=== PATIENT | male | born 1970 | race Caucasian/White ===

== ENCOUNTER → 2018-08-22 | Outpatient (CLI) | payer OTHER ==
[~2018-08-22] MED LIST: ANUSOL-HC25 MG RECTAL; COLACE100 MG PO; PRINIVIL5 MG PO
== END ==
LOC: CAT 09:11
DX: Z13.6 Encounter for screening for cardiovascular disorders (principal); E78.00 Pure hypercholesterolemia, unspecified

== ENCOUNTER → 2019-07-25 | Outpatient (CLI) | payer BC, OTHER ==
--- NOTE | 2019-07-25 13:51 | 2DMMODE ---
[facility] [place] [address] 2 D/M-MODE ECHOCARDIOGRAM Name: HUMAIRA IZAGUIRRE Room #: REG [facility]#: [id number] Admission: 07/25/19 Attend Phys: Oni Daugherty MD Discharge: Date of : 70 Report #: [id number] THIS REPORT FOR: //name// APPROVED REPORT Study performed: 07/25/2019 12:40:02 EXAM: Comprehensive 2D, Doppler, and color-flow Echocardiogram Patient Location: Out-Patient Status: routine BSA: 2.39 HR: 74 bpm BP: 122/70 mmHg Rhythm: NSR Other Information Study Quality: Good Indications Chest Pain 2D Dimensions RVDd: 29.96 mm IVSd: 11.34 (7-11mm) LVOT Diam: 25.17 (18-24mm) LVDd: 48.59 mm PWd: 11.70 (7-11mm) Ascending Ao: 38.40 (22-36mm) LVDs: 31.55 (25-40mm) Aortic Root: 39.44 mm IVC: 18.00 mm Volumes Left Atrial Volume (Systole) Single Plane 4CH: 35.63 mL Single Plane 2CH: 62.02 mL LA ESV Index: 23.00 mL/m2 Mitral Valve E/A Ratio: 1.2 MV Decel. Time: 226.37 ms MV E Max Farooq.: 1.01 m/s MV A Farooq.: 0.81 m/s MV PHT: 65.65 ms IVRT: 76.12 ms Pulmonary Valve PV Peak Farooq.: 1.00 m/s PV Peak Gr.: 4.02 mmHg [facility] [address] [place] [address] 2 D/M-MODE ECHOCARDIOGRAM Name: HUMAIRA AGUILERA Room #: REG [facility]#: [id number] Admission: 07/25/19 Attend Phys: Oni Daugherty MD Discharge: Date of : 70 Report #: [id number] Tricuspid Valve RAP Estimate: 5.00 mmHg Left Ventricle The left ventricle is normal size. There is normal left ventricular wall thickness. The left ventricular systolic function is normal. The left ventricular ejection fraction is within the normal range. LVEF is 55-60%. Right Ventricle The right ventricle is normal size. The right ventricular systolic function is normal. Atria The left atrium size is normal. The right atrium size is normal. Aortic Valve The aortic valve is normal in structure. No aortic regurgitation is present. There is no aortic valvular stenosis. Mitral Valve The mitral valve is normal in structure. Trace mitral regurgitation. No evidence of mitral valve stenosis. Tricuspid Valve The tricuspid valve is normal in structure. Trace tricuspid regurgitation. Unable to assess PA pressure. Pulmonic Valve The pulmonary valve is normal in structure. Trace pulmonic regurgitation. Great Vessels Aortic root is dilated at 3.9cm IVC is normal in size and collapses >50% with inspiration. Pericardium There is no pericardial effusion. <Conclusion> There is normal left ventricular wall thickness. The left ventricular systolic function is normal. The right ventricle is normal size. The left atrium size is normal. [facility] [address] [place] [address] 2 D/M-MODE ECHOCARDIOGRAM Name: HUMAIRA AGUILERA Room #: REG [facility]#: [id number] Admission: 07/25/19 Attend Phys: Oni Daugherty MD Discharge: Date of : 70 Report #: [id number] The aortic valve is normal in structure. Trace mitral regurgitation. Trace tricuspid regurgitation. <ELECTRONICALLY SIGNED> By: Oni Daugherty MD 07/25/19 1351 135 50 Oni Daugherty MD /INF
--- NOTE | 2019-07-25 14:24 | EXE ---
[facility] [place] [address] STRESS ECHOCARDIOGRAM Name: HUMAIRA AGUILERA [id number]: 07/25/19 Attend Phys: Oni Daugherty MD Discharge: Date of : 70 Report #: [id number] THIS REPORT FOR: //name// APPROVED REPORT Study performed: 07/25/2019 13:31:03 Exam: Stress Echocardiogram Indication: Chest pain Patient Location: Out-Patient Room #: Echo lab 2 Status: routine Ht: 6 ft 4 in HR: 76 bpm BP: 122/76 mmHg Rhythm: NSR Medical History Medical History: HTN Allergies: No known drug allergies Cardiac Risk Factors: HTN, FHX of CAD, Smoking Exercise History: Physically active Procedure The patient underwent an Exercise Stress Test using the Josef Protocol. Blood pressure, heart rate, and EKG were monitored. An Echocardiogram was performed by inorganic chemical technician in four stages in quad fashion. At peak stress, four selected images were obtained and placed side by side with resting images for comparison. Stress Test Details Stress Test: Exercise stress testing was performed using a Josef protocol. HR Resting HR: 76 bpm Max Heart Rate (APMHR): 171 bpm Max HR Achieved: 155 bpm Target HR (85% APMHR): 145 bpm % of APMHR: 90 Recovery HR: 90 bpm HR response to stress: Normal HR response to stress BP Resting BP: 122/76 mmHg Max BP: 150/80 mmHg Recovery BP: 120/76 mmHg BP response to stress: Normal blood pressure response to [facility] [address] [place] [address] STRESS ECHOCARDIOGRAM Name: HUMAIRA AGUILERA Room #: REG [facility]#: [id number] Admission: 07/25/19 Attend Phys: Oni Daugherty MD Discharge: Date of : 70 Report #: [id number] stress. ECG Resting ECG: Sinus Rhythm Stress ECG: Sinus Rhythm, nonspecific ST-T abnormalities ST Change: Non-ischemic Clinical Reason for Termination: Maximal effort Exercise duration: 9 min 37 sec Highest Stage Achieved: Stage 4: 4.2 mph at 16% grade. Exercise capacity: 11.4 METs Overall Exercise Capacity for Age: Normal Pre-Stress Echo The resting Echocardiogram showed normal left ventricular contractility with an estimated Ejection Fraction of about >55%. The resting echocardiogram demonstrated normal wall motion in all wall segments. Normal wall motion in all segments on baseline images. Post-Stress Echo The stress Echocardiogram showed normal left ventricular contractility with an estimated Ejection Fraction of about 65-70%. Compared to rest, there were no stress-induced wall motion abnormalities. Normal augmentation of wall motion in all segments on post stress images. Clinical No clinical or ECG evidence for ischemia. Conclusion Clinical Response: Non-ischemic Exercise Capacity: Average Stress ECG Response: Non-ischemic Stress Echo Images: Non-ischemic The left ventricle is normal in size and wall thickness in both the rest and stress images. No prior study available for comparison. Other Information Study Quality: Good <Conclusion> [facility] [address] [place] [address] STRESS ECHOCARDIOGRAM Name: HUMAIRA IZAGUIRRE Room #: REG [facility].#: [id number] Admission: 07/25/19 Attend Phys: Oni Daugherty MD Discharge: Date of : 70 Report #: [id number] The left ventricle is normal in size and wall thickness in both the rest and stress images. <ELECTRONICALLY SIGNED> By: Oni Daugherty MD 07/25/19 1423 1423 1423 Oni Daugherty MD /INF
== END ==
LOC: CV 07-16 10:36
DX: R07.9 Chest pain, unspecified (principal); I10 Essential (primary) hypertension